=== PATIENT | male | born 1970 | race African-American/Black ===

== ENCOUNTER 2017-01-27 12:51 | Emergency (ER) | payer BC ==
[~2017-01-27] VITALS: Ht 182.9 cm; Wt 129.3 kg
[~2017-01-27 12:51] MED LIST: ASTELIN30 ML NS; FLONASE NS; LISINOPRIL; PREDNISONE 10 M10 M1 PO; SUDAFED 12 HR120 MG PO; VALTREX1000 MG PO
[2017-01-27 13:02] VITALS: BP 143/89
[2017-01-27] MEDS ORDERED: ASTEPRO205.5 MCG/ NS (13:09)
[2017-01-27] MEDS ORDERED: TESSALON PERLE100 MG PO (13:36)
== END 2017-01-27 13:54 | disposition home or self-care (01) ==
LOC: ER 12:51
DX: J06.9 Acute upper respiratory infection, unspecified (principal); Z88.6 Allergy status to analgesic agent; Z88.5 Allergy status to narcotic agent

== ENCOUNTER 2019-08-26 07:37 | Emergency (ER) | payer OTHER ==
[~2019-08-26] VITALS: Ht 182.9 cm; Wt 111.1 kg
[~2019-08-26 07:37] MED LIST changes: +ASTEPRO205.5 MCG/ NS; +TESSALON PERLE100 MG PO
[2019-08-26 08:00] VITALS: BP 135/92
== END 2019-08-26 08:54 | disposition home or self-care (01) ==
LOC: ER 07:37
DX: M25.512 Pain in left shoulder (principal); I10 Essential (primary) hypertension; Z88.6 Allergy status to analgesic agent; V89.2XXA Person injured in unspecified motor-vehicle accident, traffic, initial encounter; Y93.89 Activity, other specified; Y92.89 Other specified places as the place of occurrence of the external cause; Y99.8 Other external cause status